=== PATIENT | female | born 1960 | race Caucasian/White ===

== ENCOUNTER 2017-11-15 23:46 | Emergency (ER) | payer BC, MEDICARE, OTHER ==
[2017-11-16 00:10] VITALS: BP 125/82; PULSE 85; RESP 18; TEMP 98; O2SAT 100
--- NOTE | 2017-11-16 03:02 | ED PDOC ---
Upper Extremity Pain/Injury Chief Complaint (Provider): hand pain History Per: Patient History/Exam Limitations: no limitations Onset/Duration Of Symptoms: Days Current Symptoms Are (Timing): Still Present Quality: "Pain" Severity: Moderate Hands/Wrist (Pic): 1 - Tenderness, Pain Worse W/Movement Exacerbating Factor(s): Movement Additional History Per: Patient Additional Complaint(s): 57 y/o F with no significant PMhx presents to ED c/o pain in the volar aspect of her L/hand near the base of her thumb for the past 4 days. Patient states she relates the pain to carrying a baby recently. She also states hurting her hand 1 y/a after a fall but Xrays were negative at the time. Denies taking any medication. Denies weakness, fever, rash, numbness or tingling. Pain radiates to forearm at times <Francis Sierra - Last Filed: 11/16/17 03:48> <Ashanti Sloan - Last Filed: 11/16/17 10:44> Time Seen by Provider: 11/16/17 02:31 Chief Complaint (Nursing): Finger,Hand,&Wrist Supervising Attending Note - Supervising Attending Note The Documented history was done by the: Physician Business Education Teacher, Attending Physician The documented physical exam was done by the: Physician Business Education Teacher, Attending Physician The documented procedures were done by the: Physician Business Education Teacher, Attending Physician - Attestation: I have personally seen and examined this patient.: Yes I have fully participated in the care of the patient.: Yes I have reviewed all pertinent clinical information: Yes <Ashanti Sloan - Last Filed: 11/16/17 10:44> Past Medical History Reviewed: Nursing Documentation, Vital Signs Vital Signs: Last Vital Signs Temp 98 F 11/16/17 00:06 Pulse 85 11/16/17 00:06 Resp 18 11/16/17 00:06 BP 125/82 11/16/17 00:06 Pulse Ox 100 11/16/17 00:06 - Family History Family History: States: Unknown Family Hx <Francis Sierra - Last Filed: 11/16/17 03:48> Reviewed: Historical Data Vital Signs: Last Vital Signs Temp 98 F 11/16/17 00:06 Pulse 85 11/16/17 00:06 Resp 18 11/16/17 00:06 BP 125/82 11/16/17 00:06 Pulse Ox 100 11/16/17 03:49 - Surgical History Surgical History: No Surg Hx <Ashanti Sloan - Last Filed: 11/16/17 10:44> - Home Medications Home Medications: Ambulatory Orders Medication Instructions Recorded Ibuprofen [Motrin] 600 mg PO Q8H #30 tab 11/16/17 - Allergies Allergies/Adverse Reactions: Allergies Allergy/AdvReac Type Severity Reaction Status Date / Time No Known Allergies Allergy Verified 06/08/15 01:47 Review of Systems ROS Statement: Except As Marked, All Systems Reviewed And Found Negative Musculoskeletal: Positive for: Hand Pain <Francis Sierra - Last Filed: 11/16/17 03:48> ROS Statement: Except As Marked, All Systems Reviewed And Found Negative <Ashanti Sloan - Last Filed: 11/16/17 10:44> Physical Exam - Physical Exam Appears: Positive for: Well, Non-toxic, No Acute Distress Skin: Positive for: Normal Color, Warm Eye Exam: Positive for: EOMI, PERRL Cardiovascular/Chest: Positive for: Regular Rate, Rhythm Respiratory: Positive for: Normal Breath Sounds. Negative for: Decreased Breath Sounds, Respiratory Distress Extremity: Positive for: Tenderness (L/hand, proximal, volar aspect. ), Other ( varcous veins). Negative for: Normal ROM (Painful ROM of L/thumb but has full ROM), Pedal Edema Neurologic/Psych: Positive for: Alert, Oriented. Negative for: Motor/Sensory Deficits <Francis Sierra - Last Filed: 11/16/17 03:48> - Reviewed Nursing Documentation Reviewed: Yes Vital Signs Reviewed: Yes <Ashanti Sloan - Last Filed: 11/16/17 10:44> - ECG O2 Sat by Pulse Oximetry: 100 <Francis Sierra - Last Filed: 11/16/17 03:48> Medical Decision Making Medical Decision Makin57 y/o with Thumb tendonitis Motrin 600 mg once and q8h for 14 days F/U as outpatient with hand doctor Wrist brace <Francis Sierra - Last Filed: 11/16/17 03:48> Disposition - Patient ED Disposition Is Patient to be Admitted: No Counseled Patient/Family Regarding: Diagnosis, Need For Followup, Rx Given - Disposition Disposition: Routine/Home Disposition Time: 03:30 <Francis Sierra - Last Filed: 11/16/17 03:48> <Ashanti Sloan - Last Filed: 11/16/17 10:44> - Clinical Impression Clinical Impression: Left hand tendonitis - Disposition Referrals: Michele Whitney MD [Medical Doctor] - Condition: GOOD Prescriptions: Ibuprofen [Motrin] 600 mg PO Q8H #30 tab Instructions: Tendonitis (DC), Hand Pain (DC)
== END 2017-11-16 03:40 | disposition home or self-care (01) ==
LOC: H.ER 23:46
DX: M77.9 Enthesopathy, unspecified (principal)